=== PATIENT | female | born 1995 ===

== ENCOUNTER 2019-11-24 06:09 | Inpatient (IN) ==
[2019-11-24] MEDS ORDERED: ceFAZolin 2,000 MG in PREMIX 1 EACH IV ONE (07:24)
[2019-11-24] MEDS ORDERED: CITRIC ACID/SODIUM CITRATE 30 ML UDCUP PO ONE (07:24)
[2019-11-24] MEDS ORDERED: FAMOTIDINE 20 MG/2 ML VIAL IV ONE (07:24)
[2019-11-24] MEDS ORDERED: OXYTOCIN/LR 30 UNIT/1,000 ML BAG IV ONE (07:26)
[2019-11-24] MEDS ORDERED: OXYTOCIN 10 UNIT/ML VIAL IM ONE (07:26)
[2019-11-24] MEDS: LACTATED RINGERS 1,000 ML IV SCH ×2 (07:32→07:58)
[2019-11-24 07:42] LABS: Basophils % 0.6 % (0.0-0.8); Eosinophils % 0.8 % (0.00-10.9); Hematocrit 26.3 VOL% (35.7-47.0); Hemoglobin 8.5 GM/DL (12.0-16.0); Immature Granulocytes % 0.2 %; Immature Granulocytes Absolute 0.01 #; Lymphocytes # 1.3 10*3/uL (1.4-4.0); Lymphocytes % 26.5 % (21.3-54.2); Mean Corpuscular HGB Conc 32.3 GM/DL (32-36); Mean Corpuscular Volume 88.3 FL (87-102); Mean Platelet Volume 11.9 FL (9.6-12.0); Monocytes % 7.2 % (1.7-12.7); Neutrophils % 64.7 % (38.7-73.9); Platelet Count 149 T/CUMM (130-400); Red Blood Count 2.98 MC/CUMM (3.8-5.5); Red Cell Distribution Width 14.6 % (9.3-17.3); White Blood Count 4.7 T/CUMM (4-12)
[2019-11-24 08:12] LABS: Albumin 2.5 G/DL (3.4-5.0); Bilirubin,Total 0.5 MG/DL (0.2-1.0); Calcium 8.2 MG/DL (8.5-10.1); Osmolality,Calculated 271.8 MOS/KG (273-304); Total Protein 6.9 G/DL (6.4-8.3)
[2019-11-24] MEDS ORDERED: ROPIVACAINE 0.5% 30 ML VIAL ONE (09:06)
[2019-11-24] MEDS ORDERED: OXYTOCIN/LR 20 UNIT/1,000 ML BAG IV ONE ×2 (09:17→09:34)
[2019-11-24 09:24] LABS: Cord Arterial Blood HCO3 20.8 MMOL/L; Cord Venous Blood HCO3 22.2 MMOL/L; Cord Venous Blood PO2 27.6 MMHG
[2019-11-24] MEDS ORDERED: RHO(D) IMMUNE GLOBULIN 300 MCG SYRINGE IM ONE (09:34)
[2019-11-24] MEDS ORDERED: ACETAMINOPHEN 325 MG TABLET PO PRN (09:34)
[2019-11-24] MEDS ORDERED: ONDANSETRON 4 MG/2 ML VIAL IV PRN (09:34)
[2019-11-24 09:48] LABS: Apearance,Urine CLEAR (Clear); Bilirubin,Urine Negative (Negative); Blood, Urine Negative (Negative); Glucose,Urine (UA) Negative (Negative); Ketones,Urine 5 mg/dL (Negative); Mucus,Urine Occasional /LPF (Occasional); Nitrite,Urine Negative (Negative); Protein,Urine 30 MG/DL; RBC,Urine 1 /HPF (0-4); Squamous Epithelial Cell,Urine Occasional /HPF (0-10); Urine Color Yellow (Yellow); Urine Specific Gravity 1.026 (1.001-1.035); WBC,Urine <1 /HPF (0-6)
[2019-11-24] MEDS ORDERED: PHENYLEPHRINE 1 MG/10 ML SYRINGE IV ONE (09:48)
[2019-11-24] MEDS ORDERED: fentaNYL 100 MCG/2 ML VIAL ONE (09:49)
[2019-11-24] MEDS ORDERED: ePHEDrine 50 MG/ML AMP ONE (09:50)
[2019-11-24] MEDS ORDERED: MORPHINE 10 MG/10 ML VIAL ONE (09:50)
[2019-11-24] MEDS ORDERED: BUPIVACAINE SPINAL 0.75% 2 ML AMP SPINAL ONE (09:50)
[2019-11-24] MEDS ORDERED: LACTATED RINGERS 1,000 ML IV SCH (10:00)
[2019-11-24] MEDS ORDERED: ceFAZolin 1,000 MG in SYRINGE 1 EACH IV SCH ×2 (10:00→17:00)
[2019-11-24] MEDS ORDERED: SODIUM CHLORIDE 0.9% 1,000 ML IV PRN (10:23)
[2019-11-24] MEDS ORDERED: METHYLERGONOVINE 0.2 MG/1 ML AMP IM ONE (10:27)
[2019-11-24 16:01] LABS: Hematocrit 22.5 VOL% (35.7-47.0); Hemoglobin 7.3 GM/DL (12.0-16.0)
[2019-11-24] MEDS: ceFAZolin 1,000 MG in SYRINGE 1 EACH IV SCH (21:21)
[2019-11-24] MEDS: DOCUSATE SODIUM 100 MG CAPSULE PO SCH (21:27)
[2019-11-25] MEDS: ceFAZolin 1,000 MG in SYRINGE 1 EACH IV SCH (04:58)
[2019-11-25 05:19] LABS: Basophils % 0.1 % (0.0-0.8); Hematocrit 23.7 VOL% (35.7-47.0); Immature Granulocytes % 0.3 %; Immature Granulocytes Absolute 0.03 #; Lymphocytes % 11.5 % (21.3-54.2); Mean Corpuscular HGB Conc 33.8 GM/DL (32-36); Mean Corpuscular Volume 85.3 FL (87-102); Mean Platelet Volume 12.1 FL (9.6-12.0); Neutrophils % 81.1 % (38.7-73.9); Platelet Count 142 T/CUMM (130-400); Red Blood Count 2.78 MC/CUMM (3.8-5.5); Red Cell Distribution Width 14.3 % (9.3-17.3); White Blood Count 8.9 T/CUMM (4-12)
[2019-11-25] MEDS: DOCUSATE SODIUM 100 MG CAPSULE PO SCH ×2 (09:12→21:33)
[2019-11-25] MEDS: MULTIVITAMIN (PRENATAL) TABLET PO SCH (09:12)
[2019-11-25] MEDS: MAGNESIUM HYDROXIDE SUSP 30 ML UDCUP PO PRN ×2 (09:12→21:33)
[2019-11-25] MEDS: METOCLOPRAMIDE 10 MG TABLET PO SCH ×2 (09:12→17:26)
[2019-11-25] MEDS: IBUPROFEN 800 MG TABLET PO PRN ×2 (09:13→17:25)
[2019-11-25] MEDS: SIMETHICONE CHEW 80 MG TABLET PO PRN ×2 (09:13→21:33)
[2019-11-26] MEDS: METOCLOPRAMIDE 10 MG TABLET PO SCH (01:44)
[2019-11-26] MEDS ORDERED: BISACODYL 10 MG SUPP RECTAL PRN (05:36)
[2019-11-26] MEDS: IBUPROFEN 800 MG TABLET PO PRN (06:29)
[2019-11-26] MEDS ORDERED: LEVOTHYROXINE 125 MCG TABLET PO SCH (06:30)
[2019-11-26] MEDS ORDERED: FERROUS SULFATE 325 MG TABLET PO SCH (09:00)
[2019-11-26] MEDS: SIMETHICONE CHEW 80 MG TABLET PO PRN (10:09)
[2019-11-26] MEDS: MULTIVITAMIN (PRENATAL) TABLET PO SCH (10:09)
[2019-11-26] MEDS: MAGNESIUM HYDROXIDE SUSP 30 ML UDCUP PO PRN (10:10)
[2019-11-26] MEDS: DOCUSATE SODIUM 100 MG CAPSULE PO SCH (10:10)
[2019-11-26 11:46] VITALS: BP 117/73
== END 2019-11-26 16:45 | disposition home or self-care (01) | DRG 540 ==
LOC: N.LD 06:09 → N.OB 12:54
PROVIDERS: ADMIT Obstetrics & Gynecology; ATTEND Obstetrics & Gynecology
PROC: LDCSECT (ICD-10-PCS; 2019-11-24 09:15)